=== PATIENT | female | born 1975 | race Caucasian/White ===

== ENCOUNTER 2023-04-09 09:26 | Emergency (ER) | payer OTHER, SELFPAY ==
--- NOTE | ~2023-04-09 | XR_ITS ---
XR knee RT min 4V DATE: 04/09/2023 09:50 INDICATION: Right knee pain TECHNIQUE: 4 views COMPARISON: None FINDINGS: No recent fracture or dislocation or joint effusion. No radiopaque intra-articular loose marielle dy or chondrocalcinosis. Joint spaces are relatively well preserved. No periosteal reaction or bone d estruction. IMPRESSION: No significant abnormality Reviewed, dictated and finalized at location A. [employer] IMPRESSION: No significant abnormality
[2023-04-09 09:39] VITALS: BP 127/77; PULSE 101; RESP 16; TEMP 37.3; O2SAT 99
--- NOTE | 2023-04-09 09:50 | ED.EXTPRO ---
HPI - Extremity Problem General Chief complaint: Extremity Problem,Nontraumatic Stated complaint: Right Knee Pain patient presents with chronic right knee pain. Pain as been occurring for 8 months. Patient takes ibuprofen on and off for pain. none today. no redness no warmth no recent injury to knee. Related Data Home Medications Medication Instructions Recorded Confirmed paroxetine HCl 40 mg tablet 40 mg PO DAILY 04/09/23 04/09/23 quetiapine 100 mg tablet 100 mg PO QHS 04/09/23 04/09/23 Allergies Allergy/AdvReac Type Severity Reaction Status Date / Time naproxen Allergy Severe Swelling Verified 04/09/23 09:49 of Lip/Tongue/Throat Review of Systems Review of Systems: CONSTITUTIONAL: Denies fever, chills, or sweats. EYES: Denies visual changes, redness, or discharge. ENT: Denies rhinorrhea, congestion, sore throat, or otalgia. CARDIOVASCULAR: Denies chest pain, palpitations, or edema. RESPIRATORY: Denies cough or dyspnea. GASTROINTESTINAL: Denies abdominal pain, nausea, vomiting, or diarrhea. GENITOURINARY: Denies dysuria or hematuria. SKIN: Denies rash or itching. MUSCULOSKELETAL: Denies back pain, joint pain, or myalgia. NEUROLOGIC: Denies headache, numbness, or weakness. PSYCHIATRIC: Denies anxiety or depression. PMFSH Comments At time of signature, agree with nursing past medical, surgical, social and family history. There is no relevant family history pertinent to the presenting complaint Exam Narrative: GENERAL: Well-appearing, well-nourished, and in no acute distress. HEAD: Normocephalic, atraumatic. EYES: PERRLA and EOMI. ENT: Nares clear, no rhinorrhea or epistaxis. Mucous membranes moist. NECK: Supple. CHEST: Clear to auscultation. No respiratory distress. HEART: Regular rate and rhythm. No murmur heard. Normal peripheral pulses. ABDOMEN: Soft, nontender, nondistended, normal active bowel sounds. EXTREMITIES: Normal range of motion. No edema.KNEE EXAM - SKIN INTACT. NO DEFORMITY. NO SIGNIFICANT SWELLING. NORMAL ROM, HAS FULL EXTENSION AND FLEXION. COMPARTMENTS SOFT. NO CALF TENDERNESS. NEGATIVE ANTERIOR, POSTERIOR DRAWER SIGNS ON TEST. NO CREPITUS. DP PULSE, NORMAL CAPILLARY REFILL. NEGATIVE RAJINDER'S. NEGATIVE MAGALIE'S pain to mdkin side of right knee SKIN: Warm, dry, no rash. NEURO: No focal deficits. Alert and oriented x3. Heather Coma Scale Eye Opening: Spontaneous 4 Heather Coma Scale Motor: Obeys Commands 6 Heather Coma Scale Verbal: Oriented 5 Heather Coma Scale Total 15 Course Course Level of Care: Express Care Visit Vital Signs Vital signs: Vital Signs Temperature 37.3 C 04/09/23 09:39 Pulse Rate 101 H 04/09/23 09:39 Respiratory Rate 16 04/09/23 09:39 Blood Pressure 127/77 04/09/23 09:39 Pulse Oximetry 99 04/09/23 09:39 Oxygen Delivery Room Air 04/09/23 09:39 Temperature 37.3 C 04/09/23 09:39 Pulse Rate 101 H 04/09/23 09:39 Respiratory Rate 16 04/09/23 09:39 Blood Pressure 127/77 04/09/23 09:39 Pulse Oximetry 99 04/09/23 09:39 Oxygen Delivery Room Air 04/09/23 09:39 MDM - Extremity (Nontraumatic) Imaging Data My impression: [facility] [place] [address] [place] [id number] XRay Report Signed Patient: Silas Tucker : 1975 MR#: [id number] Age: 48 Acct:[id number] Loc: [facility]? ? ADM Date: 04/09/23Attending Dr: Ordering Physician: Camilla Arguello APRN Date of Service: 04/09/23 Procedure(s): XR knee RT min 4V Accession Number(s): [id number] cc: Camilla Arguello APRN; TRAINING AND DEVELOPMENT DIRECTOR PHYSICIAN~ XR knee RT min 4V DATE: 04/09/2023 09:50 INDICATION: Right knee pain? TECHNIQUE: 4 views? COMPARISON: None? FINDINGS: No recent fracture or dislocation or joint effusion. No radiopaque intra-articular loose body or chondrocalcinosis. Joint spaces are relatively well preserved. No periosteal reaction or bone destruction.? IMPRESSION: No sig
== END 2023-04-09 10:06 | disposition home or self-care (01) ==
PROVIDERS: Emergency Provider Nurse Practitioner Family
DX: S80.01XA Contusion of right knee, initial encounter (principal); X58.XXXA Exposure to other specified factors, initial encounter; G89.29 Other chronic pain; M25.561 Pain in right knee; F31.9 Bipolar disorder, unspecified
CPT/HCPCS: 73564; 99213; G0463